=== PATIENT | female | born 1970 | race Two or more races ===

== ENCOUNTER 2016-07-04 05:14 | Day surgery (SDC) | payer BC, OTHER ==
[2016-07-01 11:21] VITALS: BMI 25.2
[2016-07-04] MEDS ORDERED: PROPOFOL 20 ML ONE (07:42)
[2016-07-04] MEDS ORDERED: MIDAZOLAM HCL 2 MG/2 ML SINGLE DOSE VIAL ONE (07:42)
[2016-07-04] MEDS ORDERED: GLYCOPYRROLATE 0.2 MG/1 ML VIAL ONE (07:43)
[2016-07-04] MEDS ORDERED: LIDOCAINE HCL/PF 2% SDV 5ML VIAL ONE (07:43)
[2016-07-04] MEDS ORDERED: DEXAMETHASONE SOD PHOSPHATE 4 MG/1 ML VIAL ONE (07:58)
[2016-07-04] MEDS ORDERED: KETOROLAC TROMETHAMINE 30 MG/1 ML VIAL ONE (08:13)
[2016-07-04] MEDS ORDERED: ONDANSETRON 4 MG/2 ML VIAL IVPUSH PRN (08:21)
[2016-07-04] MEDS ORDERED: PROMETHAZINE HCL 25 MG/1 ML VIAL IVPUSH PRN (08:21)
[2016-07-04] MEDS ORDERED: ONDANSETRON 4 MG/2 ML VIAL IVPB PRN (08:25)
[2016-07-04] MEDS ORDERED: oxyCODONE HCL 5 MG TABLET PO PRN (08:25)
[2016-07-04] MEDS ORDERED: IBUPROFEN 800 MG/8 ML IJ IVPB PRN (08:25)
[2016-07-04] MEDS ORDERED: IBUPROFEN 600 MG TABLET (FP) PO PRN (08:25)
[2016-07-04] MEDS ORDERED: LACTATED RINGERS SOLUTION 1,000 ML IV SCH (08:30)
[2016-07-04] MEDS ORDERED: ELECTROLYTE-148 SOLN 1,000 ML IV SCH (08:30)
--- NOTE | 2016-07-04 08:34 | HP ---
Past Medical History - Primary Care Physician PCP:: George Luke - Admission Chief Complaint: ireegular excessive vaginal bleeding History of Present Illness: 46 yo f with hx of irregular heavey vaginal bleeding and anemia , sono irregular EM admitted for hysteroscpy D&C. 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 Gastrointestinal: Yes: Other (History of chano-en-Y gastric bypass, small bowel obstruction and revision of Rou-en-Y) Heme/Onc: Yes: Anemia Musculoskeletal: Yes: Chronic low back pain, Other (left foot drop) - Past Surgical History Past Surgical History: Yes: Bariatric Surgery, , Tubal Ligation ( abdominoplasty) Hx Myomectomy: No Hx Transabdominal Cerclage: No - Advance Directives Advance Directives: Yes: Health Care Proxy - Smoking History Smoking history: Current every day smoker Have you smoked in the past 12 months: Yes Aproximately how many cigarettes per day: 20 - Alcohol/Substance Use Hx Alcohol Use: No History of Substance Use: reports: None - Social History History of Recent Travel: No Home Medications - Allergies Allergies/Adverse Reactions: Allergies Allergy/AdvReac Type Severity Reaction Status Date / Time etodolac [From Lodine] Allergy Intermediate Hives Verified 07/01/16 11:21 - Home Medications Home Medications: Ambulatory Orders Carisoprodol [Soma] 350 mg PO TID 01/19/16 Diazepam [Valium] 5 mg PO Q8H 01/19/16 Duloxetine HCl [Cymbalta] 25 mg PO HS 01/19/16 Folic Acid 1 mg PO DAILY 01/19/16 Gabapentin [Neurontin] 400 mg PO BID 01/19/16 Iron 325 mg PO DAILY 01/19/16 Tapentadol HCl [Nucynta] 100 mg PO QID 01/19/16 Vitamin B Complex 1 each PO DAILY 01/19/16 Vitamin D - 5,000 units PO WEEKLY 01/19/16 Zolpidem Tartrate [Ambien] 10 mg PO HS PRN 01/19/16 Ibuprofen [Motrin -] 600 mg PO QID #28 tablet 07/04/16 Review of Systems - Review of Systems Constitutional: reports: Weakness Eyes: reports: No Symptoms HENT: reports: No Symptoms Neck: reports: No Symptoms Cardiovascular: reports: No Symptoms Respiratory: reports: No Symptoms Gastrointestinal: reports: Abdominal Pain Genitourinary: reports: Vaginal Bleeding Breasts: reports: No Symptoms Reported Musculoskeletal: reports: No Symptoms Integumentary: reports: No Symptoms Neurological: reports: No Symptoms Endocrine: reports: No Symptoms Hematology/Lymphatic: reports: No Symptoms Psychiatric: reports: No Symptoms 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 Vital Signs: Vital Signs Temperature 98.7 F 07/04/16 06:44 Pulse Rate 102 H 07/04/16 06:44 Respiratory Rate 20 07/04/16 06:44 Blood Pressure 108/67 07/04/16 06:44 O2 Sat by Pulse Oximetry (%) 99 07/04/16 06:45 Constitutional: Yes: Well Nourished, No Distress, Calm Eyes: Yes: WNL, Conjunctiva Clear, EOM Intact HENT: Yes: WNL, Atraumatic, Normocephalic Neck: Yes: WNL, Supple, Trachea Midline Cardiovascular: Yes: WNL, Regular Rate and Rhythm Respiratory: Yes: WNL, Regular, CTA Bilaterally Gastrointestinal: Yes: WNL ...Rectal Exam: Yes: Deferred Renal/: Yes: WNL Pelvis: Yes: WNL External Genitalia: Yes: Normal, Cystocele Internal Exam Deferred: No Vaginal Exam: Yes: Bleeding Cervix: Yes: Normal Uterus: Yes: Normal Adnexa: Not Palpable: Left, Right Breast(s): Yes: WNL Musculoskeletal: Yes: WNL Extremities: Yes: WNL Integumentary: Yes: WNL Neurological: Yes: WNL, Alert, Oriented ...Motor Strength: WNL Psychiatric: Yes: WNL, Alert, Oriented Assessment/Plan menometrorrhagia, anemia. irregular EM for hysteroscopy, D&C, polypectomy, rba discussed
[2016-07-04 10:06] VITALS: TEMP 98.7
[2016-07-04 10:37] VITALS: BP 112/72; PULSE 92
--- NOTE | 2016-07-04 14:30 | OP ---
OPERATIVE REPORT DATE OF OPERATION: 07/05/16 PROCEDURE: 1. Hysteroscopy. 2. D&C. 3. Polypectomy. PREOPERATIVE DIAGNOSIS: 1. Menometrorrhagia. 2. Anemia. 3. Endometrial polyps. POSTOPERATIVE DIAGNOSIS: 1. Menometrorrhagia. 2. Anemia. 3. Endometrial polyps. SURGEON: George Luke MD ANESTHESIA: General. ANESTHESIOLOGIST: Nomi Juarez MD ESTIMATED BLOOD LOSS: 25 mL OPERATIVE REPORT: Patient was taken to the operating room and after adequate general anesthesia, placed in the lithotomy position. Examination under anesthesia showed external genitalia to be normal. There was a large cystocele and rectocele and a first degree uterine prolapse. Cervix was clean, no lesion. Uterus was normal size, adnexa normal as palpable. Then with a weighted speculum in the vagina, the anterior most cervix was grasped using a tenaculum, and a cervical curetting was done. Uterine cavity was sounded to 8 cm. Then, hysteroscope was introduced into the endocervical canal, and the cervical canal appeared to be normal. Uterine cavity was irregular, and three small polyps were noted at the fundal area of the uterus. Both cornual regions were identified. No submucous myoma. Then hysteroscope was withdrawn, and then endometrium was curetted in bods developer fashion. Then polyp forceps was introduced into the uterine cavity, and the polyps were removed, and hysteroscope was re-introduced. All the polyps have been removed. Patient tolerated the procedure well and left the OR in good condition. GEORGE LUKE M.D. [id number]
--- NOTE | 2016-07-06 13:50 | PATH ---
Surgical Pathology Report Patient Name: JANEL GRISSOM [facility]. Rec. #: [id number] /Age/Gender: 1970 (Age: 46) / F Account: [id number] Location: [facility] Taken: 07/04/2016 Received: 07/04/2016 Reported: 07/06/2016 Physicians: George Luke M.D. Specimen(s) Received A: ENDOCERVICAL CURETTINGS B: ENDOMETRIAL CURETTINGS Clinical History Menorrhagia, anemia, endometrial polyp Final Diagnosis A. ENDOCERVIX, CURETTAGE: BENIGN ENDOCERVICAL GLANDULAR TISSUE AND SQUAMOUS EPITHELIUM. B. ENDOMETRIUM, CURETTAGE: ENDOMETRIAL POLYP AND PROLIFERATIVE ENDOMETRIUM. Electronically Signed Diana Washington M.D. Gross Description A. Received in formalin, labeled "endocervical curettings," is a 1.1 x 1.0 x 0.2 cm aggregate of acosta soft tissue fragments admixed with blood-tinged mucous. The formalin is filtered and the specimen is entirely submitted in one cassette. B. Received in formalin, labeled "endometrial curettings," is a 2.5 x 2.0 x 0.3 cm aggregate of red-brown soft tissue fragments. The formalin is filtered and the specimen is entirely submitted in one cassette. 07/04/201607/04/2016
== END 2016-07-04 10:40 | disposition home or self-care (01) ==
LOC: JASU-SURG 05:14
PROVIDERS: ATTEND Obstetrics & Gynecology
PROC: 0UB98ZX Excision of Uterus, Via Natural or Artificial Opening Endoscopic, Diagnostic (ICD-10-PCS; principal; 2016-07-04 08:00)
PROC: 0UDB8ZX Extraction of Endometrium, Via Natural or Artificial Opening Endoscopic, Diagnostic (ICD-10-PCS; 2016-07-04 08:00)
DX: N92.0 Excessive and frequent menstruation with regular cycle (principal); D64.9 Anemia, unspecified; N84.0 Polyp of corpus uteri
CPT/HCPCS: 88305-TC; 94760

== ENCOUNTER 2017-08-15 07:30 | Day surgery (SDC) | payer BC, OTHER ==
[2017-08-15] MEDS: DIPHENHYDRAMINE 25 MG in SODIUM CHLORIDE 100 ML IVPB ONE ×2 (11:57→18:03)
[2017-08-15] MEDS: FERRIC CARBOXYMALTOSE 750 MG in SODIUM CHLORIDE 250 ML IVPB ONE ×2 (12:22→18:03)
[2017-08-15] MEDS ORDERED: ACETAMINOPHEN 325 MG TABLET (FP) PO ONE (13:00)
[2017-08-15 18:09] VITALS: BP 122/68; PULSE 81; TEMP 97.8
== END 2017-08-15 13:30 | disposition home or self-care (01) ==
LOC: JONCNONCHE 07:30 → J7W 11:37 → JONCNONCHE 13:30
PROVIDERS: ATTEND Internal Medicine Hematology & Oncology
PROC: 3E033GC Introduction of Other Therapeutic Substance into Peripheral Vein, Percutaneous Approach (ICD-10-PCS; principal; 2017-08-15)
DX: D64.9 Anemia, unspecified (principal)
CPT/HCPCS: 96365

== ENCOUNTER 2017-08-22 08:10 | Day surgery (SDC) | payer BC, OTHER ==
[2017-08-22] MEDS ORDERED: DIPHENHYDRAMINE 25 MG in SODIUM CHLORIDE 100 ML IVPB ONE (13:00)
[2017-08-22] MEDS ORDERED: ACETAMINOPHEN 325 MG TABLET (FP) PO ONE (13:00)
[2017-08-22] MEDS ORDERED: FERRIC CARBOXYMALTOSE 750 MG in SODIUM CHLORIDE 250 ML IVPB ONE (13:15)
[2017-08-22 14:09] LABS: HEMATOCRIT 28.5 % (32.4-45.2); HEMOGLOBIN 8.9 GM/dL (10.7-15.3); MCH 22.7 pg (25.7-33.7); MCHC 31.2 g/dl (32.0-36.0); MEAN CELL VOLUME 72.8 fl (80-96); MEAN PLT VOLUME 8.5 fl (7.5-11.1); PLATELET COUNT 263 K/MM3 (134-434); RBC 3.92 M/mm3 (3.60-5.2); RDW 20.7 % (11.6-15.6); WHITE BLOOD COUNT 7.4 K/mm3 (4.0-10.0)
[2017-08-22 14:43] LABS: ALBUMIN 3.4 g/dl (3.4-5.0); ANION GAP 10 (8-16); BILIRUBIN,TOTAL 0.3 mg/dL (0.2-1.0); BLOOD UREA NITROGEN 9 mg/dL (7-18); CHLORIDE 102 mmol/L (98-107); CO2 27 mmol/L (21-32); CREATININE 0.5 mg/dL (0.55-1.02); GLUCOSE,RANDOM 115 mg/dL (74-106); POTASSIUM 4.1 mmol/L (3.5-5.1); SGOT/AST 20 U/L (15-37); SGPT/ALT 31 U/L (12-78); SODIUM 139 mmol/L (136-145)
[2017-08-22 14:44] LABS: ALK PHOS 115 U/L (45-117); TOT PROT 6.6 g/dl (6.4-8.2)
[2017-08-22 17:02] VITALS: PULSE 89; TEMP 97.4
[2017-08-22 17:04] VITALS: BP 110/80
== END 2017-08-22 15:30 | disposition home or self-care (01) ==
LOC: JONCNONCHE 08:10 → J7W 13:22 → JONCNONCHE 15:30
PROVIDERS: ATTEND Internal Medicine Hematology & Oncology
PROC: 3E033GC Introduction of Other Therapeutic Substance into Peripheral Vein, Percutaneous Approach (ICD-10-PCS; principal; 2017-08-22)
DX: D50.9 Iron deficiency anemia, unspecified (principal)
CPT/HCPCS: 36415; 80053; 85027; 96365

== ENCOUNTER 2017-09-26 06:20 | Inpatient (IN) | payer BC, OTHER ==
[2017-09-22 13:26] VITALS: BMI 23.6
--- NOTE | 2017-09-26 07:07 | HP ---
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 Gastrointestinal: Yes: Other (History of chano-en-Y gastric bypass, small bowel obstruction and revision of Rou-en-Y) Heme/Onc: Yes: Anemia Musculoskeletal: Yes: Chronic low back pain, Other (left foot drop) - Past Surgical History Past Surgical History: Yes: Bariatric Surgery (abdominoplasty), Tubal Ligation ( abdominoplasty) Hx Myomectomy: No Hx Transabdominal Cerclage: No - Smoking History Smoking history: Current every day smoker Have you smoked in the past 12 months: Yes Aproximately how many cigarettes per day: 20 - Alcohol/Substance Use Hx Alcohol Use: No History of Substance Use: reports: None - Social History History of Recent Travel: No Home Medications - Allergies Allergies/Adverse Reactions: Allergies Allergy/AdvReac Type Severity Reaction Status Date / Time etodolac [From Lodine] Allergy Intermediate Hives Verified 09/26/17 07:05 - Home Medications Home Medications: Ambulatory Orders Carisoprodol [Soma] 350 mg PO TID 01/19/16 Diazepam [Valium] 5 mg PO Q8H 01/19/16 Folic Acid 1 mg PO DAILY 01/19/16 Gabapentin [Neurontin] 600 mg PO BID 01/19/16 Tapentadol HCl [Nucynta] 100 mg PO QID 01/19/16 Vitamin B Complex 1 each PO DAILY 01/19/16 Vitamin D - 5,000 units PO WEEKLY 01/19/16 Zolpidem Tartrate [Ambien] 10 mg PO HS PRN 01/19/16 Review of Systems - Review of Systems Constitutional: reports: Lethargy Eyes: reports: No Symptoms HENT: reports: No Symptoms Neck: reports: No Symptoms Gastrointestinal: reports: Bloating Genitourinary: reports: Frequency, Vaginal Bleeding Breasts: reports: No Symptoms Reported Musculoskeletal: reports: Muscle Pain, Muscle Cramps Neurological: reports: No Symptoms Endocrine: reports: No Symptoms Hematology/Lymphatic: reports: No Symptoms Physical Exam-CRTS Vital Signs: Vital Signs Temperature Pulse Rate Respiratory Rate Blood Pressure O2 Sat by Pulse Oximetry (%) 99 09/26/17 06:54 Constitutional: Yes: Well Nourished, No Distress, Calm Eyes: Yes: WNL, Conjunctiva Clear, EOM Intact HENT: Yes: WNL, Atraumatic, Normocephalic Neck: Yes: WNL, Supple, Trachea Midline Cardiovascular: Yes: WNL, Regular Rate and Rhythm Respiratory: Yes: WNL, Regular, CTA Bilaterally Gastrointestinal: Yes: WNL ...Rectal Exam: Yes: WNL Renal/: Yes: WNL Cervix: Yes: Normal Uterus: Yes: Normal, Freely Moveable (second degree prolapse) Adnexa: Not Palpable: Left, Right Breast(s): Yes: WNL Musculoskeletal: Yes: WNL Extremities: Yes: WNL Edema: No Integumentary: Yes: WNL Neurological: Yes: WNL, Alert, Oriented ...Motor Strength: WNL Psychiatric: Yes: WNL, Alert, Oriented Problem List - Problem (1) Menometrorrhagia Code(s): N92.1 - EXCESSIVE AND FREQUENT MENSTRUATION WITH IRREGULAR CYCLE (2) Anemia Code(s): D64.9 - ANEMIA, UNSPECIFIED Qualifiers: Anemia type: iron deficiency Iron deficiency anemia type: chronic blood loss Qualified Code(s): D50.0 - Iron deficiency anemia secondary to blood loss (chronic) (3) Uterine prolapse Code(s): N81.4 - UTEROVAGINAL PROLAPSE, UNSPECIFIED Assessment/Plan vaginal hysterectomy, A.P repair, pernioplasty, rba discussed
[2017-09-26] MEDS ORDERED: ceFAZolin SODIUM 1 GM VIAL ONE (07:30)
[2017-09-26] MEDS ORDERED: ceFAZolin 2 GRAM PREMIX BAG IVPB ONE (08:00)
[2017-09-26] MEDS ORDERED: LIDOCAINE HCL/PF 2% SDV 5ML VIAL ONE (08:03)
[2017-09-26] MEDS ORDERED: DEXAMETHASONE SOD PHOSPHATE 4 MG/1 ML VIAL ONE ×2 (08:03→09:59)
[2017-09-26] MEDS ORDERED: ROCURONIUM BROMIDE 50 MG/5 ML VIAL ONE (08:03)
[2017-09-26] MEDS ORDERED: fentaNYL CITRATE 250 MCG/5 ML VIAL ONE (08:03)
[2017-09-26] MEDS ORDERED: PROPOFOL 20 ML ONE (08:03)
[2017-09-26] MEDS ORDERED: ceFAZolin SODIUM 1 GM VIAL IVPB ONE (08:17)
[2017-09-26] MEDS ORDERED: VASOPRESSIN 20 UNITS/ML VIAL IV ONE (08:18)
[2017-09-26] MEDS ORDERED: metroNIDAZOLE 0.75% VAGINAL GEL 70 GM TUBE VG ONE (09:19)
[2017-09-26] MEDS ORDERED: PROMETHAZINE HCL 25 MG/1 ML VIAL IVPUSH PRN (09:47)
[2017-09-26] MEDS ORDERED: metroNIDAZOLE 0.75% VAGINAL GEL 70 GM TUBE ONE (09:53)
[2017-09-26] MEDS ORDERED: GLYCOPYRROLATE 0.2 MG/1 ML VIAL ONE (10:00)
[2017-09-26] MEDS ORDERED: LACTATED RINGERS SOLUTION 1,000 ML IV SCH (10:00)
[2017-09-26] MEDS ORDERED: NEOSTIGMINE METHYLSULFATE 0.5 MG/ML - 10 ML MDV ONE (10:00)
[2017-09-26] MEDS ORDERED: IBUPROFEN 600 MG TABLET (FP) PO PRN (10:26)
[2017-09-26] MEDS ORDERED: oxyCODONE HCL 5 MG TABLET PO PRN ×2 (10:26→10:29)
[2017-09-26] MEDS ORDERED: ONDANSETRON 4 MG/2 ML VIAL IVPUSH PRN ×2 (10:26→11:08)
[2017-09-26] MEDS ORDERED: ELECTROLYTE-148 SOLN 1,000 ML IV SCH (10:30)
[2017-09-26] MEDS ORDERED: HYDROmorphone *PCA* 10MG/50ML DISP.SYRIN PCA ONE (10:57)
[2017-09-26] MEDS ORDERED: DEXAMETHASONE SOD PHOSPHATE 4 MG/1 ML VIAL IVPUSH ONE (11:08)
[2017-09-26] MEDS ORDERED: PROMETHAZINE HCL 25 MG/1 ML VIAL IVPB PRN ×2 (11:08→12:07)
[2017-09-26] MEDS ORDERED: HYDROmorphone *PCA* 10MG/50ML DISP.SYRIN PCA SCH (11:15)
[2017-09-26] MEDS: IBUPROFEN 800 MG/8 ML IJ IVPB PRN (12:00)
[2017-09-26] MEDS: CEFAZOLIN 1 GM/D5W 1 GM/50 ML BAG IVPB SCH (17:17)
[2017-09-27] MEDS: CEFAZOLIN 1 GM/D5W 1 GM/50 ML BAG IVPB SCH ×2 (01:01→09:50)
[2017-09-27 08:04] VITALS: BP 112/52; PULSE 107; TEMP 98.8
[2017-09-27 08:19] LABS: HEMOGLOBIN 10.8 GM/dL (10.7-15.3); MCH 28.3 pg (25.7-33.7); MCHC 33.8 g/dl (32.0-36.0); MEAN CELL VOLUME 83.8 fl (80-96); PLATELET COUNT 195 K/MM3 (134-434); RBC 3.82 M/mm3 (3.60-5.2); RDW 30.8 % (11.6-15.6); WHITE BLOOD COUNT 9.6 K/mm3 (4.0-10.0)
[2017-09-27 08:21] LABS: ADD RBC MORPHOLOGY YES
[2017-09-27] MEDS ORDERED: PCA PUMP KEY 1 EACH EACH ONE (08:23)
[2017-09-27 08:47] LABS: ANION GAP 5 (8-16); BLOOD UREA NITROGEN 6 mg/dL (7-18); CALCIUM 7.8 mg/dL (8.5-10.1); CHLORIDE 107 mmol/L (98-107); CO2 28 mmol/L (21-32); CREATININE 0.3 mg/dL (0.55-1.02); GLUCOSE,RANDOM 91 mg/dL (74-106); POTASSIUM 4.1 mmol/L (3.5-5.1); SODIUM 140 mmol/L (136-145)
[2017-09-27 08:49] LABS: ANISOCYTOSIS 3+
[2017-09-27 08:50] LABS: OVALOCYTE 1+
[2017-09-27] MEDS: IBUPROFEN 800 MG/8 ML IJ IVPB PRN (08:51)
[2017-09-27] MEDS ORDERED: ENOXAPARIN NA (PORCINE) 40 MG/0.4 ML DISP.SYRIN SQ SCH (10:00)
--- NOTE | 2017-09-27 10:33 | OP ---
DATE OF OPERATION: 09/26/2017 PREOPERATIVE DIAGNOSES: Uterovaginal prolapse, cystocele, rectocele, menometrorrhagia, fibroid uterus. POSTOPERATIVE DIAGNOSES: Uterovaginal prolapse, cystocele, rectocele, menometrorrhagia, fibroid uterus. PROCEDURE: Vaginal hysterectomy, anterior-posterior repair and perineoplasty. SURGEON: George Luke MD PHOTONIC LABORATORY TECHNICIAN: Garry Funes MD ANESTHESIA: General. ANESTHESIOLOGIST: David Orellana MD ESTIMATED BLOOD LOSS: 200 mL. OPERATION: Patient was taken to the operating room. Under adequate general anesthesia in the dorsal lithotomy position examination under anesthesia revealed external genitalia. The vaginal introitus was gaping . She had a large cystocele and rectocele and uterine prolapse. Uterus was normal size with a posterior fibroid was felt. Adnexa normal size, palpable. Then with a weighted speculum in the vagina anterior lip of the cervix grasped with 2 single-tooth tenaculum and paracervical area was infiltrated with diluted solution of vasopressin. Then vaginal mucosa was circumferentially cut around the cervix. Bladder was dissected from the anterior vaginal mucosa with blunt and sharp dissection with Metzenbaum scissors and then posteriorly the mucosa was also dissected with Metzenbaum scissors until the cul-de-sac was reached. At this time cul-de-sac was grasped with an Allis clamp and entered and then a weighted speculum was advanced into the cul-de-sac. Uterosacral ligament was identified at this time, was grasped with a Noah clamp, cut and the clamp replaced with 0 Vicryl suture bilaterally. Bladder was then pushed up and bluntly dissected and then it was lifted and then paracervical area was grasped with Noah clamp, cut and the clamp replaced with 0 Vicryl suture bilaterally. At this time uterine artery was identified and then anterior peritoneum was entered and the bladder was lifted. Uterine artery was identified bilaterally, clamped with Noah clamp, cut and the clamp replaced with 0 Vicryl suture bilaterally. Then both upper pedicles were identified and grasped with Noah clamp, cut and the clamp replaced first with 0 Vicryl ties and then 0 Vicryl suture bilaterally and the specimen was removed and the vaginal cuff was closed with interrupted suture of 2-0 Vicryl and then uterosacral ligament was fixed to the vaginal angle with 0 Vicryl suture interrupted. Then anterior colporrhaphy started by infiltrating the vasopressin in the anterior vaginal mucosa. Bladder was from the vaginal mucosa and then the cystocele was repaired with interrupted suture of 3-0 Vicryl. The excess vaginal mucosa was cut and then the anterior vaginal mucosa closed with continuous suture of 3-0 Vicryl. Then posterior vaginal mucosa infiltrated with vasopressin and dissected with Metzenbaum scissors and the rectum was from the vaginal mucosa and rectocele repaired with interrupted suture of 3-0 Vicryl. Then muscles were brought together with interrupted suture of 2-0 Vicryl and then perineum was closed in the episiotomy fashion with interrupted suture of a 2-0 Vicryl and 3-0 Vicryl for the skin interrupted. Vagina was packed. Wilkinson was inserted; clear urine. No active bleeding was seen. Patient tolerated procedure well, left the OR in good condition. All the lap, sponge and instrument counts were correct. Chucky [id number]
--- NOTE | 2017-09-27 10:45 | PN ---
Progress Note (short form) - Note Progress Note: pod1 doing well, no c/o CBC, BMP 09/27/17 07:30 09/27/17 07:30 Last Vital Signs Temp Pulse Resp BP Pulse Ox 98.8 F 107 H 20 112/52 100 09/27/17 08:02 09/27/17 08:02 09/27/17 08:02 09/27/17 08:02 09/26/17 21:00 abdomen soft , no distension, no cva ,non tender lochia mild no calf tenderness no edema vaginal packing removed . 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
--- NOTE | 2017-09-27 16:12 | PATH ---
Surgical Pathology Report Patient Name: JANEL GRISSOM [facility]. Rec. 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 Specimen(s) Received A: UTERUS AND CERVIX B: VAGINAL MUCOSA , ANTERIOR AND POSTERIOR Clinical History Menorrhagia, cystocele second degree uterine prolapse, fibroid uterus Final Diagnosis A. UTERUS AND CERVIX, VAGINAL HYSTERECTOMY: SECRETORY ENDOMETRIUM. MYOMETRIUM WITH INTRAMURAL LEIOMYOMATA. CERVIX WITHOUT SIGNIFICANT PATHOLOGIC FINDINGS. B. VAGINAL MUCOSA, ANTERIOR AND POSTERIOR, PERINEOPLASTY: VAGINAL SQUAMOUS MUCOSA WITHOUT SIGNIFICANT PATHOLOGIC FINDINGS. Electronically Signed Eufemia Parekh M.D. Gross Description A. Received in formalin labeled "uterus, cervix," is a 197 g uterus with an attached cervix and no attached adnexa. The specimen measures 10 cm from superior to inferior, 6.5 cm from left to right and 6.0 cm from anterior to posterior. The serosa is pink-acosta and smooth. The cervix measures 3 cm in length and averages 2.5 cm in diameter. The ectocervix is pink-acosta, smooth and glistening. The endocervix is unremarkable. The endometrial cavity measures 4.5 cm in length and 2.5 cm from cornu to cornu. The endometrium is acosta-red and measures up to 0.4 cm in thickness. The myometrium displays 2 intramural nodules measuring 1.2 and 3.2 cm in greatest dimension. The cut surface of the nodules is acosta, firm to rubbery and displays whorled architecture. No areas of hemorrhage or necrosis are identified. The remaining myometrium is acosta-pink and averages 2.8 cm in thickness. Ceiling Insulation Blower sections are submitted in 8 cassettes as follows: 1-anterior cervix; 2-posterior cervix; 0-9-[id number] endomyometrium; 4-7-ljhrkhhvf endomyometrium; 7-smaller intramural nodule; 8-larger intramural nodule. B. Received in formalin labeled "vaginal mucosa anterior, posterior," are 3 acosta-brown portions of mucosal tissue and skin ranging from 2.5 x 1.3 x 0.3 cm to 2.8 x 1.0 x 0.5 cm. No lesions are identified. Ceiling Insulation Blower sections are submitted in one cassette. 09/26/2017 [facility]09/26/2017
== END 2017-09-27 11:00 | disposition home or self-care (01) | DRG 743 ==
LOC: JASUSAT 06:20 → JSAMEDAYSX 10:27 → EDSTATUS 10:51 → J3W 12:37
PROVIDERS: ADMIT Obstetrics & Gynecology; ATTEND Obstetrics & Gynecology
PROC: 0JQC0ZZ Repair Pelvic Region Subcutaneous Tissue and Fascia, Open Approach (ICD-10-PCS; 2017-09-26)
PROC: 0UT97ZZ Resection of Uterus, Via Natural or Artificial Opening (ICD-10-PCS; principal; 2017-09-26 08:00)
DX: N81.4 Uterovaginal prolapse, unspecified (principal); N92.1 Excessive and frequent menstruation with irregular cycle; D25.9 Leiomyoma of uterus, unspecified; D64.9 Anemia, unspecified; M54.5 Low back pain; Z98.84 Bariatric surgery status
CPT/HCPCS: 36415; 80048; 84703; 85027; 86850; 86900; 86901; 88302-TC; 88307-TC; 94760